=== PATIENT | male | born 1960 | race Caucasian/White ===

== ENCOUNTER 2020-05-25 10:25 | Inpatient (IN) | payer OTHER ==
[2020-05-25 12:05] VITALS: BMI 24.1
[2020-05-25] MEDS ORDERED: MAGNESIUM HYDROX 2400MG/30ML ORAL SUSPENSION 30 ML CUP PO PRN (12:25)
[2020-05-25] MEDS ORDERED: MAGNESIUM CITRATE 300 ML BOTTLE PO PRN (12:25)
[2020-05-25] MEDS ORDERED: BISMUTH SUBSALICYLATE 524 MG/30 ML UD PO PRN (12:25)
[2020-05-25] MEDS ORDERED: MAG HYDROX/AL HYDROX/SIMETH 30 ML UNIT-DOSE CUP PO PRN (12:25)
[2020-05-25] MEDS ORDERED: ONDANSETRON *ODT* 4 MG TABLET SL PRN (12:25)
[2020-05-25] MEDS ORDERED: MENTHOL/PHENOL 1 EACH UD MM PRN (12:25)
[2020-05-25] MEDS ORDERED: NICOTINE POLACRILEX 2 MG GUM BUC PRN (12:25)
[2020-05-25] MEDS ORDERED: ACETAMINOPHEN 325 MG TABLET (FP) PO PRN ×2 (12:25)
[2020-05-25] MEDS ORDERED: IBUPROFEN 400 MG TABLET (FP) PO PRN (12:25)
[2020-05-25] MEDS ORDERED: chlordiazePOXIDE HCL 25 MG CAPSULE PO PRN (12:25)
[2020-05-25] MEDS ORDERED: METHOCARBAMOL 500 MG TABLET PO PRN (12:25)
[2020-05-25] MEDS: chlordiazePOXIDE HCL 25 MG CAPSULE PO SCH ×3 (13:38→23:10)
[2020-05-25] MEDS: PRENATAL VITAMINS W/ FOLIC ACID TABLET (FP) PO SCH (13:38)
[2020-05-25] MEDS: NICOTINE 21 MG/24 HOURS TOPICAL PATCH TD SCH (13:45)
[2020-05-25] MEDS ORDERED: hydrOXYzine PAMOATE 25 MG CAPSULE (FP) PO SCH (14:00)
[2020-05-25 14:34] LABS: CALCIUM 8.7 mg/dL (8.5-10.1)
[2020-05-25 14:35] LABS: ALBUMIN 3.7 g/dl (3.4-5.0); BLOOD UREA NITROGEN 6.1 mg/dL (7-18)
[2020-05-25 14:38] LABS: CREATININE 0.7 mg/dL (0.55-1.3)
[2020-05-25 14:39] LABS: BILIRUBIN,TOTAL 0.9 mg/dL (0.2-1); TOT PROT 7.1 g/dl (6.4-8.2)
[2020-05-25 14:51] LABS: HEMATOCRIT 44.6 % (35.4-49); HEMOGLOBIN 15.1 GM/dL (11.7-16.9); MCH 35.6 pg (25.7-33.7); MCHC 33.8 g/dl (32.0-35.9); MEAN CELL VOLUME 105.3 fl (80-96); MEAN PLT VOLUME 7.4 fl (7.5-11.1); PLATELET COUNT 355 K/MM3 (134-434); RBC 4.23 M/mm3 (4.00-5.60); RDW 13.4 % (11.9-15.9); WHITE BLOOD COUNT 5.9 K/mm3 (4.0-10.0)
[2020-05-25] MEDS: THIAMINE HCL 100 MG TABLET (FP) PO SCH (23:11)
[2020-05-25] MEDS: MELATONIN 5 MG TABLETS PO SCH (23:11)
[2020-05-25] MEDS: hydrOXYzine PAMOATE 25 MG CAPSULE (FP) PO SCH (23:11)
[2020-05-26] MEDS: chlordiazePOXIDE HCL 25 MG CAPSULE PO SCH ×2 (06:33→10:22)
[2020-05-26] MEDS: PRENATAL VITAMINS W/ FOLIC ACID TABLET (FP) PO SCH (10:22)
[2020-05-26] MEDS: NICOTINE 21 MG/24 HOURS TOPICAL PATCH TD SCH (10:24)
[2020-05-26] MEDS ORDERED: LORazepam 0.5 MG TABLET PO PRN (12:16)
[2020-05-26] MEDS: LORazepam 1 MG TABLET PO SCH ×2 (18:12→22:11)
[2020-05-26] MEDS: THIAMINE HCL 100 MG TABLET (FP) PO SCH (22:11)
[2020-05-26] MEDS: MELATONIN 5 MG TABLETS PO SCH (22:11)
[2020-05-26] MEDS: hydrOXYzine PAMOATE 25 MG CAPSULE (FP) PO SCH (22:11)
[2020-05-27] MEDS ORDERED: chlordiazePOXIDE HCL 25 MG CAPSULE PO SCH (05:00)
[2020-05-27] MEDS: LORazepam 1 MG TABLET PO SCH ×4 (05:28→23:26)
[2020-05-27] MEDS: NICOTINE 21 MG/24 HOURS TOPICAL PATCH TD SCH (10:44)
[2020-05-27] MEDS: PRENATAL VITAMINS W/ FOLIC ACID TABLET (FP) PO SCH (10:44)
[2020-05-27] MEDS: hydrOXYzine PAMOATE 25 MG CAPSULE (FP) PO SCH (23:26)
[2020-05-27] MEDS: THIAMINE HCL 100 MG TABLET (FP) PO SCH (23:26)
[2020-05-27] MEDS: MELATONIN 5 MG TABLETS PO SCH (23:26)
[2020-05-28] MEDS ORDERED: chlordiazePOXIDE HCL 10 MG CAPSULE PO PRN
[2020-05-28] MEDS ORDERED: chlordiazePOXIDE HCL 10 MG CAPSULE PO SCH (05:00)
[2020-05-28] MEDS: LORazepam 0.5 MG TABLET PO SCH ×4 (05:35→22:24)
[2020-05-28 08:08] LABS: SARS-CoV-2 NAA Not Detected (Not Detected)
[2020-05-28] MEDS: NICOTINE 21 MG/24 HOURS TOPICAL PATCH TD SCH (10:36)
[2020-05-28] MEDS: PRENATAL VITAMINS W/ FOLIC ACID TABLET (FP) PO SCH (10:36)
[2020-05-28] MEDS: hydrOXYzine PAMOATE 25 MG CAPSULE (FP) PO SCH (22:23)
[2020-05-28] MEDS: THIAMINE HCL 100 MG TABLET (FP) PO SCH (22:23)
[2020-05-28] MEDS: MELATONIN 5 MG TABLETS PO SCH (22:23)
[2020-05-29] MEDS ORDERED: LORazepam 0.5 MG TABLET PO ONE (05:00)
[2020-05-29] MEDS ORDERED: chlordiazePOXIDE HCL 10 MG CAPSULE PO SCH (05:00)
[2020-05-29 07:53] VITALS: TEMP 97.1
[2020-05-29 09:43] VITALS: BP 107/82; PULSE 112
[2020-05-29] MEDS: NICOTINE 21 MG/24 HOURS TOPICAL PATCH TD SCH (10:10)
[2020-05-29] MEDS: PRENATAL VITAMINS W/ FOLIC ACID TABLET (FP) PO SCH (10:10)
[2020-05-30] MEDS ORDERED: chlordiazePOXIDE HCL 10 MG CAPSULE PO ONE (05:00)
== END 2020-05-29 09:21 | disposition home or self-care (01) | DRG 774 ==
LOC: YASAS 10:25 → Y3N 12:11
PROVIDERS: ADMIT Allergy & Immunology; ATTEND Allergy & Immunology
PROC: HZ2ZZZZ Detoxification Services for Substance Abuse Treatment (ICD-10-PCS; principal; 2020-05-25)
DX: F10.230 Alcohol dependence with withdrawal, uncomplicated (principal); F14.20 Cocaine dependence, uncomplicated; F17.210 Nicotine dependence, cigarettes, uncomplicated; F19.280 Other psychoactive substance dependence with psychoactive substance-induced anxiety disorder; F19.282 Other psychoactive substance dependence with psychoactive substance-induced sleep disorder; K40.90 Unilateral inguinal hernia, without obstruction or gangrene, not specified as recurrent; R56.9 Unspecified convulsions; R74.8 Abnormal levels of other serum enzymes
CPT/HCPCS: 36415; 80053; 85027; 86780; C9803; U0003; U0005